=== PATIENT | male | born 1975 | race Two or more races ===

== ENCOUNTER 2025-04-10 10:59 | Emergency (ER) | payer BC, OTHER ==
[~2025-04-10] VITALS: Ht 177.8 cm; Wt 100.0 kg
[2025-04-10 11:00] VITALS: BP 162/102; PULSE 73; RESP 16; TEMP 97.6; O2SAT 95
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
--- NOTE | 2025-04-10 14:37 | DVH ---
EXAM: XY L ANKLE 3 VIEW CLINICAL INDICATION: R/o fracture TECHNIQUE: XY L ANKLE 3 VIEW Comparison: None FINDINGS/IMPRESSION: There is no evidence of acute fracture or dislocation. Diffuse soft tissue swelling. The alignment is anatomical. There is no radiopaque foreign body.
--- NOTE | 2025-04-10 14:38 | DVH ---
EXAM: XY L KNEE 3V XRAY CLINICAL INDICATION: R/o fracture TECHNIQUE: XY L KNEE 3V XRAY Comparison: None FINDINGS/IMPRESSION: There is no evidence of acute fracture or dislocation. Moderate left knee tricompartmental joint space narrowing. The alignment is anatomical. There is no radiopaque foreign body.
[2025-04-10] MEDS ORDERED: IBUP-1456 PO (15:09)
== END 2025-04-10 15:25 | disposition home or self-care (01) ==
LOC: ER 10:59
DX: S93.402A Sprain of unspecified ligament of left ankle, initial encounter (principal); M17.12 Unilateral primary osteoarthritis, left knee; I10 Essential (primary) hypertension; Z90.89 Acquired absence of other organs; V29.99XA Rider (driver) (passenger) of other motorcycle injured in unspecified traffic accident, initial encounter; Y93.89 Activity, other specified; Y92.410 Unspecified street and highway as the place of occurrence of the external cause; Y99.8 Other external cause status
CPT/HCPCS: 73562; 73610